=== PATIENT | male | born 1955 | race Caucasian/White ===

== ENCOUNTER → 2018-05-27 | Day surgery (SDC) | payer OTHER ==
[2018-05-27] VITALS (8 sets, daily range): BP systolic 118–168; BP diastolic 70–88
[~2018-05-27] VITALS: Ht 162.6 cm; Wt 111.1 kg
[~2018-05-27] MED LIST: ALPRAZOLAM 0.5 MG TAB ONE; DIPHENHYDRAMINE HCL 25 MG CAP ONE; FENTANYL CITRATE/PF 100MCG/2 ML INJ ONE; HEPARIN SOD/SOD CHLORIDE 2,000 ML ONE; IOPAMIDOL 370 MG/ML 200 ML INFUS..BTL INJ ONE; LIDOCAINE HCL 2% LOCAL 20 ML VIAL ONE; MIDAZOLAM HCL 2 MG/2 ML VIAL ONE; SODIUM CHLORIDE 0.9% 1000ML 1,000 ML ONE; VERAPAMIL HCL 2.5 MG/ML 2 ML VIAL ONE; asa
--- OUTSIDE RECORDS SUMMARY | 2018-05-27 12:01 | XMS REPORT | Continuity of Care Document ---
Author Author [facility] Interface Address Unknown Phone Unavailable Problems Problem Status Onset Date Classification Date Reported Comments Source G47.33 Active 04/24/2018 [facility] Medications Medication Details Route Status Patient Instructions Ordering Provider Order Date Source Allergies, Adverse Reactions, Alerts Substance Category Reaction Severity Reaction type Status Date Reported Comments Source Immunizations Immunization Date Given Site Status Last Updated Comments Source Results Order Name Results Value Reference Range Date Interpretation Comments Source Chest 2 views DX Chest 2 views DX Patient Name: ANUP GAMBOA : 1955; Age: 62 years Male MR: [id number] Study: Chest 2 views DX Order Time: 04/24/2018 12:01 PM [employer] INS[employer] CLINICAL INDICATION: - G47.33 Obstructive sleep apnea (adult) (pediatric) COMPARISON: None FINDINGS: Lines: None. Lungs: The lungs are grossly clear. Mediastinum: The cardiac silhouette is within normal limits of size. Midline trachea. Bones and soft tissues: No acute abnormalities. IMPRESSION: No acute cardiopulmonary abnormalities. SL: [id number] 04/24/2018 - - Read by: Sherron Muhammad MD Dictated Date/time: 04/24/18 15:39 Electronically Signed by: Sherron Muhammad MD 04/24/18 15:39 FINAL REPORT [facility] Vital Signs Vital Sign Value Date Comments Source Encounters Location Location Details Encounter Type Encounter Number Reason For Visit Attending Provider ADM Date DC Date Status Source Procedures Procedure Code Date Perfomer Comments Source
[2018-05-27 14:14] LABS: BASOPHILS % 0.3 % (0.0-1.0); EOSINOPHILS # (AUTO) 0.2 (0.0-0.4); EOSINOPHILS % 2.4 % (0.0-6.0); HEMATOCRIT 43.1 % (38.2-49.6); HEMOGLOBIN 14.9 g/dL (14.0-18.0); LYMPHOCYTES # (AUTO) 2.5 (1.0-3.2); MEAN CORPUSCULAR HEMOGLOBIN 29.4 pg (28-32); MEAN CORPUSCULAR HGB CONC 34.6 g/dL (31-35); MEAN CORPUSCULAR VOLUME 85.2 fL (81-99); MONOCYTES # (AUTO) 0.5 (0.2-0.8); MONOCYTES % 6.9 % (4.4-11.3); NEUTROPHILS # (AUTO) 3.5 (2.1-6.9); NEUTROPHILS % 52.2 % (38.7-80.0); PLATELET COUNT 219 x10e3/uL (140-360); RED BLOOD COUNT 5.06 x10e6/uL (4.3-5.7); RED CELL DISTRIBUTION WIDTH 13.1 % (11.7-14.4)
[2018-05-27 14:35] LABS: ALANINE AMINOTRANSFERASE 18 IU/L (0-55); ALBUMIN 3.8 g/dL (3.5-5.0); ALBUMIN/GLOBULIN RATIO 1.1 (0.8-2.0); ALKALINE PHOSPHATASE 59 IU/L (40-150); ANION GAP 14.2 mmol/L (8-16); BLOOD UREA NITROGEN 13 mg/dL (7-26); BUN/CREATININE RATIO 16 (6-25); CALCIUM 9.2 mg/dL (8.4-10.2); CARBON DIOXIDE 22 mmol/L (22-29); CHLORIDE 105 mmol/L (98-107); CHOL/HDL RATIO 5.5 (3.9-4.7); CHOLESTEROL 177 MD/DL (0-199); CREATININE, SERUM 0.82 mg/dL (0.72-1.25); EST GLOMERULAR FILTRATION RATE > 60 ML/MIN (60-); GLUCOSE 93 mg/dL (74-118); HDL CHOLESTEROL 32 MG/DL (40-60); LDL CHOLESTEROL 112 MG/DL (60-130); POTASSIUM 4.2 mmol/L (3.5-5.1); SODIUM 137 mmol/L (136-145); TRIGLYCERIDES 167 MG/DL (0-149)
--- NOTE | 2018-05-27 17:20 | NUR ---
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 Was no fix. Rt TR band approach. Adequate radial pulse.Site w/o s/s oozing. Device intact. Titration scheduled 1830pm. PEERL. Back to baseline orientation. Respiration shallow and regular Sat 98 %b RA.Abd soft and nontender denies necessity to defecate and defecate. Bilateral femoral pulses present. Rt Ac iv site infusing w/o s/s infiltration. Orderd diet tray. tolerated po intact. Anali phoned and will review dc orders and drive pt home.
--- NOTE | 2018-05-27 19:00 | NUR ---
1900 arrived finished TR band titration. Reviewed discharge plans with POC discussed. Rt TR band off pressure dressing in place with no s/s bleeding or hematoma. Rt ac iv removed site w/o s/s infiltration. Discharged home post tolerating po intake. 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
--- NOTE | 2018-07-10 23:28 | Operative Report ---
DATE OF PROCEDURE: May 27, 2018 INDICATION: Coronary artery disease. PROCEDURES PERFORMED 1. Left heart catheterization, selective coronary angiography. 2. Deployment of right wrist transradial band. COMPLICATIONS: None. RECOMMENDATION: Medical therapy. Access obtained in the right radial artery. A 5-[place] sheath was placed. Diagnostic coronary angiogram revealed no angiographic coronary artery disease. Dual ostia of the circumflex and left anterior descending artery with excellent flow. No intervention was deemed necessary. Right wrist TR band applied. Patient discharged home same day. Job#: [id number]
== END | disposition home or self-care (01) ==
LOC: CATH LAB 11:57
PROVIDERS: ATTEND Internal Medicine Interventional Cardiology
DX: I25.118 Atherosclerotic heart disease of native coronary artery with other forms of angina pectoris (principal); E78.01 Familial hypercholesterolemia; Z79.82 Long term (current) use of aspirin; Z68.41 Body mass index [BMI] 40.0-44.9, adult
CPT/HCPCS: 36415; 80053; 80061; 85025; 93454; C1887; J2001; J2250; J7030; Q9967